=== PATIENT | female | born 1985 | race Caucasian/White ===

== ENCOUNTER 2016-07-23 10:59 | Emergency (ER) | payer MEDICAID ==
[~2016-07-23 10:59] MED LIST: Hyoscyamine 0.125 MG Tab.SL SL SCH
[2016-07-23] MEDS ORDERED: Sodium Chloride 0.9% 10 ML Syringe FLUSH PRN (11:39)
[2016-07-23] MEDS ORDERED: Ketorolac 30 MG/ML SDV IVPUSH ONE (11:39)
[2016-07-23] MEDS ORDERED: Hyoscyamine 0.125 MG/ML Bottle PO ONE (11:39)
[2016-07-23] MEDS ORDERED: Sodium Chloride 0.9% 1,000 ML IV ONE ×3 (11:39→14:47)
[2016-07-23] MEDS ORDERED: Sodium Chloride 0.9% 2.5 ML Syringe FLUSH PRN (11:39)
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
[2016-07-23] MEDS ORDERED: Hyoscyamine 0.125 MG Tab.SL SL ONE (12:03)
[2016-07-23 12:18] LABS: CHLORIDE,CL 112 mmol/L (98-110); SODIUM,NA 145 mmol/L (136-146)
[2016-07-23] MEDS ORDERED: Morphine 10 MG/ML Syringe IV ONE (13:18)
[2016-07-23] MEDS ORDERED: Ondansetron 4 MG/2 ML SDV IVPUSH ONE (13:18)
[2016-07-23] MEDS ORDERED: Iopamidol 755 Mg/ML 100 ML Bottle IVPUSH STA (13:54)
--- NOTE | 2016-07-23 14:29 | CT ---
CT of the abdomen and pelvis with contrast. HISTORY: Pain TECHNIQUE: Axial CT images were obtained of the abdomen and pelvis following administration of 100 m L of Isovue-370 in the right antecubital fossa without complication. Coronal and sagittal reconstruc tions obtained. FINDINGS: The lung bases are clear, no pleural effusion. The liver, spleen, adrenal glands, and pancreas appear normal. Cholecystectomy clips are noted. Ther e is no bulky retroperitoneal lymphadenopathy or abdominal ascites. The kidneys enhance and function symmetrically without evidence of obstructive uropathy. The large and small bowel are normal in caliber without evidence of obstruction. No focal pericoloni c inflammation or stranding. The appendix is normal. There is a small amount of free pelvic fluid, l ikely physiologic. The uterus and ovaries appear grossly normal. No suspicious osseous abnormalities identified. IMPRESSION: 1. No definite acute findings within the abdomen or pelvis. 2. Small amount of free pelvic fluid, likely physiologic.
[2016-07-23] MEDS ORDERED: Levofloxacin 500 MG Tab PO ONE (14:47)
[2016-07-23 19:29] VITALS: BP 88/45
== END 2016-07-23 16:55 | disposition home or self-care (01) ==
LOC: MW.ED 10:59
DX: K58.0 Irritable bowel syndrome with diarrhea (principal); N12 Tubulo-interstitial nephritis, not specified as acute or chronic; G43.909 Migraine, unspecified, not intractable, without status migrainosus; F17.210 Nicotine dependence, cigarettes, uncomplicated; Z90.49 Acquired absence of other specified parts of digestive tract; Z88.5 Allergy status to narcotic agent; Z88.8 Allergy status to other drugs, medicaments and biological substances
CPT/HCPCS: 36415; 74177; 80053; 80305; 81001; 81025; 83605; 85025; 87040; 99285; A9270; J1885; J2405; J7040; Q9967; 99284